=== PATIENT | male | born 1990 | race African-American/Black ===

== ENCOUNTER 2017-05-11 14:56 | Emergency (ER) | payer SELFPAY ==
[~2017-05-11 14:56] MED LIST: AMOX875 PO; HYDRO2.5%T TOP
[2017-05-11 14:58] VITALS: BP 118/75; PULSE 89; RESP 16; TEMP 98.3; O2SAT 100
--- NOTE | 2017-05-11 16:44 | PD ---
HPI Chief Complaint: Headache Time Seen by Provider: 16:31 Travel History International Travel<30 days: No Contact w/Intl Traveler<30days: No Traveled to known affect area: No History of Present Illness HPI 27-year-old male presents to the ED for evaluation of "years" long history of intermittent headaches. Gradual onset, over the frontal region, described as dull, rated 6/10 maximally, resolving spontaneously after 30 minutes to 1 hour. He endorses accompanying blurred vision and gait disturbance. No headache or accompanying symptoms currently. He does complain of cold like symptoms including runny nose, sore throat and nonproductive cough. He also complains that "my bones crack all the time." He denies fevers, chills, nausea, vomiting , room spinning sensation. He sought treatment today "because things have not gotten better." He states that he's been evaluated for the same in the past and told "everything is fine." He treats at home with ibuprofen no improvement of symptoms. Endorses occasional marijuana use, denies other elicits. PFSH Past Medical History Diabetes: No Social History Alcohol Use: Yes ("once a month") Tobacco Use: No Substance Use: Yes (marijuana ) Allergies-Medications (Allergen,Severity, Reaction): Coded Allergies: No Known Allergies (Unverified , 03/07/16) Reported Meds & Prescriptions Reported Meds & Active Scripts Active Kerry-D 24 Hour Allergy (Fexofenadine-Pseudoephedrine ER 24 HR) 180-240 Nata 1 Tab PO DAILY Hydrocortisone 2.5 % Oin 2.5 % TOP BID Amoxicillin 875 Mg Tab 875 Mg PO BID 10 Days Review of Systems Except as stated in HPI: all other systems reviewed are Neg Physical Exam Narrative GENERAL: Well-nourished, well-developed thin black male in no acute distress. SKIN: Warm and dry. HEAD: Normocephalic. Atraumatic. EYES: No scleral icterus. No injection or drainage. PERRLA. EOMI. ENT: Pearly bray tympanic membranes bilaterally. Nasal mucosa is moist. Oropharynx without erythema, edema or exudate. Posterior cobblestoning noted. NECK: Supple, trachea midline. No JVD or lymphadenopathy. CARDIOVASCULAR: Regular rate and rhythm without murmurs, gallops, or rubs. RESPIRATORY: Breath sounds clear and equal bilaterally. No accessory muscle use. GASTROINTESTINAL: Abdomen soft, non-tender, nondistended. + Bowel sounds MUSCULOSKELETAL: No cyanosis, or edema. NEUROLOGICAL: Awake and alert. Cranial nerves II through XII intact. Motor and sensory grossly within normal limits. Five out of 5 muscle strength in all muscle groups. Normal speech. No ataxia. No pronator drift. BACK: Nontender without obvious deformity. No CVA tenderness. Data Data Last Documented VS Vital Signs Date Time Temp Pulse Resp B/P (MAP) Pulse Ox O2 Delivery O2 Flow Rate FiO2 05/11/17 17:01 05/11/17 14:58 98.3 89 16 100 Orders Orders Ed Discharge Order (05/11/17 16:53) MDM Medical Decision Making Medical Screen Exam Complete: Yes Emergency Medical Condition: Yes Differential Diagnosis Environmental allergies versus cephalgia versus malingering versus other Narrative Course 27-year-old male presents to the ED for evaluation of "years" long history of intermittent headaches. Gradual onset, over the frontal region, described as dull, rated 6/10 maximally, resolving spontaneously after 30 minutes to 1 hour. He endorses accompanying blurred vision and gait disturbance. No headache or accompanying symptoms currently. He does complain of cold like symptoms including runny nose, sore throat and nonproductive cough. He also complains that "my bones crack all the time." He denies fevers, chills, nausea, vomiting , room spinning sensation. He sought treatment today "because things have not gotten better." He states that he's been evaluated for the same in the past and told "everything is fine." Vitals reviewed. Physical exam is reassuring. No focal neurological defect deficits. I do see some posterior cobblestoning of the oropharynx which makes me suspicious for histamine headaches as the source. Patient does not currently have a headache. He is prescribed Kerry- D daily for the next 30 days, instructed to treat symptomatically should headaches occur, the primary care provider. We discussed reasons to return to the ED. He indicated understanding of the instructions and is agreeable to the care plan. He is stable and discharged home. Diagnosis Primary Impression: Frequent headaches Additional Impression: Environmental and seasonal allergies Referrals: Ear / Nose / Throat Specialist Primary Care Physician Patient Instructions: Allergies (ED), General Instructions Additional Instructions: Rest, hydrate. Take antihistamine daily as prescribed. Follow-up with the search manager or primary care provider. Return to the ED for worsening symptoms or any urgent or emergent medical condition. Med/Other Pt SpecificInfo: Prescription(s) given Scripts Fexofenadine-Pseudoephedrine ER 24 HR (Kerry-D 24 Hour Allergy) 180-240 Nata 1 TAB PO DAILY for Allergy Management, #30 TAB 0 Refills Prov: Jameson Hills MD 05/11/17 Disposition: 01 DISCHARGE HOME Condition: Stable Jeanine Le May 11, 2017 16:44
[2017-05-11] MEDS ORDERED: FEXO1TAB97 PO (16:53)
== END 2017-05-11 17:01 | disposition home or self-care (01) ==
LOC: NEPK 14:56
DX: R51 Headache (principal); J30.2 Other seasonal allergic rhinitis
CPT/HCPCS: 99283

== ENCOUNTER 2017-05-30 11:07 | Emergency (ER) | payer SELFPAY ==
[~2017-05-30] VITALS: Ht 195.6 cm; Wt 75.0 kg
[~2017-05-30 11:07] MED LIST changes: +FEXO1TAB97 PO
[2017-05-30 11:08] VITALS: BP 120/72; PULSE 68; RESP 14; TEMP 97.6; O2SAT 100
--- NOTE | 2017-05-30 11:33 | PD ---
HPI Chief Complaint: Medical Clearance Time Seen by Provider: 11:27 Travel History International Travel<30 days: No Contact w/Intl Traveler<30days: No Traveled to known affect area: No History of Present Illness HPI 27-year-old male presents to the emergency department requesting a note to go back to work after being sent home from work 3 days ago with nausea and vomiting. He has not had any nausea and vomiting again since. He reported to work this morning and the told him he had to have a doctors know to come back to work. Denies fever, abdominal pain. Denies diarrhea. Symptoms are mild in severity. No known relieving or aggravating factors. No known allergies. No primary care provider. Denies significant past medical history. Has no other medical complaints. No other modifying factors or associated signs and symptoms. History Social History Alcohol Use: Yes ("once a month") Tobacco Use: No Allergies-Medications (Allergen,Severity, Reaction): Coded Allergies: No Known Allergies (Unverified , 03/07/16) Reported Meds & Prescriptions Reported Meds & Active Scripts Active Kerry-D 24 Hour Allergy (Fexofenadine-Pseudoephedrine ER 24 HR) 180-240 Nata 1 Tab PO DAILY Hydrocortisone 2.5 % Oin 2.5 % TOP BID Amoxicillin 875 Mg Tab 875 Mg PO BID 10 Days Review of Systems Except as stated in HPI: all other systems reviewed are Neg Physical Exam Narrative GENERAL: Well-nourished, well-developed black male patient, in no acute distress ; afebrile, nontoxic-appearing SKIN: Warm and dry. HEAD: Atraumatic. Normocephalic. EYES: Pupils equal and round. No scleral icterus. No injection or drainage. ENT: Mucosa pink and moist. Airway patent. NECK: Trachea midline. CARDIOVASCULAR: Regular rate. RESPIRATORY: No accessory muscle use. GASTROINTESTINAL: Abdomen soft, non-tender, nondistended. Hepatic and splenic margins not palpable. Bowel sounds are active 4 quadrants. MUSCULOSKELETAL: No obvious deformities. No clubbing. No cyanosis. No edema. NEUROLOGICAL: Awake and alert. Oriented 3. No obvious cranial nerve deficits. Motor grossly within normal limits. Normal speech. PSYCHIATRIC: Appropriate mood and affect; insight and judgment normal. Data Data Last Documented VS Vital Signs Date Time Temp Pulse Resp B/P (MAP) Pulse Ox O2 Delivery O2 Flow Rate FiO2 05/30/17 11:08 97.6 68 14 120/72 (88) 100 Room Air MDM Medical Screen Exam Complete: Yes Emergency Medical Condition: No Differential Diagnosis Work release Narrative Course 27-year-old male requesting work release note. Vital signs are stable and the patient is stable for outpatient follow-up and treatment. The patient has no urgent or emergent medical complaints. There is no emergent or urgent medical need at this time. I instructed the patient to follow up with their primary care provider. A medical screening exam was performed: At the time of evaluation the presenting medical condition was determined not to be of an emergent nature. The patient was given the option of receiving additional care, but declined. Patient was given options for additional community resources from which to obtain care. The Patient Has Been advised to seek medical attention for their presenting complaint. The patient has been advised to return to the ER at any time if an emergent condition develops. Primary Impression: Encounter for medical screening examination Condition: Stable Radha Capellan [facility] May 30, 2017 11:33
== END 2017-05-30 11:40 | disposition left against medical advice (07) ==
LOC: NEPD 11:07
DX: Z09 Encounter for follow-up examination after completed treatment for conditions other than malignant neoplasm (principal)
CPT/HCPCS: 99281